=== PATIENT | female | born 1970 | race African-American/Black ===

== ENCOUNTER 2022-04-05 22:33 | Emergency (ER) | payer BC | END 2022-04-06 02:55 | disposition home or self-care (01) | LOC: CSHERS 22:33 | DX: S43.402A Unspecified sprain of left shoulder joint, initial encounter (principal); E78.5 Hyperlipidemia, unspecified; I10 Essential (primary) hypertension; E11.9 Type 2 diabetes mellitus without complications; E03.9 Hypothyroidism, unspecified; Z79.4 Long term (current) use of insulin; W18.30XA Fall on same level, unspecified, initial encounter | CPT/HCPCS: J7620 ==

== ENCOUNTER 2023-04-17 21:01 | Emergency (ER) | payer BC ==
[2023-04-17] MEDS ORDERED: cefTRIAXone (ROCEPHIN) 1 GM VIAL ONE (23:18)
[2023-04-17 23:52] LABS: ALT (SGPT) 19 U/L (8-55); AST (SGOT) 18 U/L (5-34); Albumin 3.9 g/dL (3.5-5.0); Alkaline Phosphatase 82 U/L (40-110); Anion Gap 13 mmol/L (10-20); BUN (Urea Nitrogen) 22 mg/dL (9.8-20.1); Bilirubin, Total 0.6 mg/dL (0.2-1.2); Calc. Creatinine Clearance 0 mL/min (70-130); Calcium 9.3 mg/dL (7.8-10.44); Carbon Dioxide 25 mmol/L (22-29); Chloride 98 mmol/L (98-107); Estimated GFR 56; Glucose 332 mg/dL (70-105); Potassium 3.2 mmol/L (3.5-5.1); Protein, Total 7.9 g/dL (6.0-8.3); Sodium 133 mmol/L (136-145)
[2023-04-17 23:55] LABS: #Eosinphils 0.1 10x3/uL (0.0-0.5); #Monocytes 0.8 10x3/uL (0.0-1.1); #Neutrophils 11.1 10x3/uL (1.5-8.4); %Basophils 0.2 % (0.0-2.0); %Eosinophils 0.7 % (0.0-6.0); %Lymphocytes 13.1 % (18.0-47.0); %Monocytes 5.7 % (0.0-10.0); %Neutrophils 79.8 % (40.0-75.0); Hematocrit 35.2 % (34.9-44.5); Hemoglobin 11.9 g/dL (12.0-15.5); Mean Corpuscular HGB CONC 33.8 g/dL (32.0-36.0); Mean Corpuscular Hemoglobin 28.5 pg (27.0-33.0); Mean Corpuscular Volume 84.4 fl (81.6-98.3); Mean Platelet Volume 11.7 fl (7.4-10.4); Platelet Count 295 10x3/uL (150-450); RBC Distribution Width 13.3 % (11.5-14.5); Red Blood Cell (RBC) Count 4.17 10x6/uL (3.90-5.03); White Blood Cell (WBC) Count 13.9 10x3/uL (3.5-10.5)
[2023-04-18] MEDS ORDERED: Ketorolac Tromethamine 30 MG/ML VIAL ONE (01:23)
[2023-04-18] MEDS ORDERED: Potassium Chloride 20 MEQ TAB ONE (01:23)
== END 2023-04-18 02:30 | disposition home or self-care (01) ==
LOC: CSHERS 21:01
DX: L03.113 Cellulitis of right upper limb (principal); E78.5 Hyperlipidemia, unspecified; I10 Essential (primary) hypertension; E03.9 Hypothyroidism, unspecified; E11.9 Type 2 diabetes mellitus without complications; Z79.4 Long term (current) use of insulin; Z79.84 Long term (current) use of oral hypoglycemic drugs
CPT/HCPCS: 36415; 80053; 85025; 87040; 96361; 96374; 96375; J0696; J1885

== ENCOUNTER 2023-08-15 18:17 | Inpatient (IN) | payer BC ==
[2023-08-15] MEDS ORDERED: Ibuprofen 200 MG TAB ONE (18:30)
[2023-08-15 18:44] LABS: Bilirubin Neg (Negative); Blood, Urine 150 (Negative); Clarity Slightly Cloudy (Clear); Glucose, Urine (Dipstick) 100 mg/dL (Negative); Ketone, Urine 50 mg/dL (Negative); Leukocyte 500 (Negative); Nitrite Negative (Negative); Protein, Urine (Dipstick) 100 mg/dl (Neg-Trace); Specific Gravity, Urine 1.005 (1.005-1.030); Urobilinogen Normal mg/dL (Less than 2)
[2023-08-15 19:05] LABS: CAUTI Indications for Culture Dysuria,urgency,freq; Squamous Epithelial 0-3 HPF (0-3); WBC/HPF 21-50 HPF (0-3)
[2023-08-15 19:06] LABS: Bacteria/HPF 2+ HPF (None Seen)
[2023-08-15 19:07] LABS: Urine Culture Reflex Yes Yes
[2023-08-15 19:19] LABS: SARS-CoV-2 NAA Rapid Test Not Detected (NotDetected)
[2023-08-15 20:27] LABS: #Eosinphils 0.1 10x3/uL (0.0-0.5); #Monocytes 0.8 10x3/uL (0.0-1.1); #Neutrophils 10.5 10x3/uL (1.5-8.4); %Basophils 0.3 % (0.0-2.0); %Eosinophils 0.7 % (0.0-6.0); %Lymphocytes 7.4 % (18.0-47.0); %Monocytes 6.3 % (0.0-10.0); %Neutrophils 84.6 % (40.0-75.0); Hematocrit 32.7 % (34.9-44.5); Hemoglobin 11.6 g/dL (12.0-15.5); Mean Corpuscular HGB CONC 35.5 g/dL (32.0-36.0); Mean Corpuscular Hemoglobin 29.7 pg (27.0-33.0); Mean Corpuscular Volume 83.6 fl (81.6-98.3); Platelet Count 230 10x3/uL (150-450); RBC Distribution Width 13.3 % (11.5-14.5); Red Blood Cell (RBC) Count 3.91 10x6/uL (3.90-5.03); White Blood Cell (WBC) Count 12.5 10x3/uL (3.5-10.5)
[2023-08-15 20:49] LABS: ALT (SGPT) 11 U/L (8-55); AST (SGOT) 16 U/L (5-34); Albumin 3.8 g/dL (3.5-5.0); Alkaline Phosphatase 62 U/L (40-110); Anion Gap 18 mmol/L (10-20); BUN (Urea Nitrogen) 17 mg/dL (9.8-20.1); Bilirubin, Total 0.9 mg/dL (0.2-1.2); Calc. Creatinine Clearance 0 mL/min (70-130); Calcium 9.1 mg/dL (7.8-10.44); Carbon Dioxide 19 mmol/L (22-29); Chloride 98 mmol/L (98-107); Estimated GFR 58; Globulin 3.5 g/dL (2.4-3.5); Glucose 290 mg/dL (70-105); Lipase 25 U/L (8-78); Potassium 3.2 mmol/L (3.5-5.1); Protein, Total 7.3 g/dL (6.0-8.3); Sodium 132 mmol/L (136-145)
[2023-08-15] MEDS ORDERED: Dextrose 5% in Water 1,000 ML IV PRN (21:02)
[2023-08-15] MEDS ORDERED: Senokot S 8.6-50 MG TAB PO PRN (21:02)
[2023-08-15] MEDS ORDERED: Dextrose 50% Abboject 50 ML SYRINGE SLOW IVP PRN (21:02)
[2023-08-15] MEDS ORDERED: Glucagon 1 MG/ML KIT IM PRN (21:02)
[2023-08-15] MEDS ORDERED: Calcium Carbonate 500 MG ChewTAB PO PRN (21:02)
[2023-08-15] MEDS ORDERED: Ondansetron PF 4 MG/2 ML Vial IVP PRN (21:02)
[2023-08-15] MEDS ORDERED: Guaifenesin DM 100-10/5 ML UDCUP PO PRN (21:02)
[2023-08-15] MEDS ORDERED: Zolpidem Tartrate 5 MG TAB PO PRN (21:02)
[2023-08-15] MEDS ORDERED: cefTRIAXone (ROCEPHIN) 1 GM VIAL ONE (21:06)
[2023-08-15] MEDS ORDERED: traMADol HCl 50 MG TAB PO PRN (21:10)
[2023-08-16] MEDS ORDERED: Potassium Chloride 20 MEQ TAB PO SCH (01:00)
[2023-08-16] MEDS ORDERED: Lactated Ringer's 1,000 ML IV SCH (01:00)
[2023-08-16 02:43] VITALS: BMI 39.3
[2023-08-16 03:58] LABS: #Eosinphils 0.3 10x3/uL (0.0-0.5); #Monocytes 0.3 10x3/uL (0.0-1.1); #Neutrophils 7.2 10x3/uL (1.5-8.4); %Basophils 0.4 % (0.0-2.0); %Eosinophils 3.2 % (0.0-6.0); %Lymphocytes 4.2 % (18.0-47.0); %Monocytes 3.4 % (0.0-10.0); %Neutrophils 88.4 % (40.0-75.0); Hematocrit 31.9 % (34.9-44.5); Hemoglobin 10.9 g/dL (12.0-15.5); Mean Corpuscular HGB CONC 34.2 g/dL (32.0-36.0); Mean Corpuscular Volume 84.8 fl (81.6-98.3); Mean Platelet Volume 11.8 fl (7.4-10.4); Platelet Count 196 10x3/uL (150-450); RBC Distribution Width 13.3 % (11.5-14.5); Red Blood Cell (RBC) Count 3.76 10x6/uL (3.90-5.03); White Blood Cell (WBC) Count 8.2 10x3/uL (3.5-10.5)
[2023-08-16] MEDS: Acetaminophen 325 MG TAB PO PRN ×3 (03:59→18:02)
[2023-08-16 04:22] LABS: Anion Gap 17 mmol/L (10-20); BUN (Urea Nitrogen) 15 mg/dL (9.8-20.1); Calc. Creatinine Clearance 115 mL/min (70-130); Calcium 8.5 mg/dL (7.8-10.44); Carbon Dioxide 21 mmol/L (22-29); Chloride 102 mmol/L (98-107); Estimated GFR 65; Glucose 273 mg/dL (70-105); Potassium 3.8 mmol/L (3.5-5.1); Sodium 136 mmol/L (136-145)
[2023-08-16] MEDS ORDERED: Levothyroxine Sodium 125 MCG TAB PO SCH (06:00)
[2023-08-16] MEDS: HumaLOG 300 UNITS/3 ML VIAL SC PRN ×4 (06:28→22:33)
[2023-08-16] MEDS ORDERED: Electrolyte Replacement Protocol 1 EACH FS SCH (08:15)
[2023-08-16] MEDS: metFORMIN 500 MG TAB PO SCH ×2 (08:28→18:02)
[2023-08-16] MEDS: Rosuvastatin 10 MG TAB PO SCH (08:28)
[2023-08-16] MEDS: Amlodipine 5 MG TAB PO SCH (08:43)
[2023-08-16] MEDS ORDERED: Lantus 1000 UNITS/10 ML VIAL SC SCH (09:00)
[2023-08-16 11:17] LABS: Free T4 (Free Thyroxine) 1.65 ng/dL (0.70-1.48)
[2023-08-16 12:43] LABS: Hemoglobin A1c 8.2 % (4.0-6.0)
[2023-08-16] MEDS ORDERED: cefTRIAXone\\ROCEPHIN 2 GM in Sodium Chloride 0.9% 100 ML IVPB SCH (21:00)
[2023-08-16] MEDS ORDERED: Enoxaparin 40 MG (0.4 mL) SYRINGE SC SCH (21:00)
[2023-08-16] MEDS: Gabapentin 300 MG CAP PO SCH (21:15)
[2023-08-16] MEDS: Lantus 1000 UNITS/10 ML VIAL SC SCH (22:33)
[2023-08-17] MEDS: Acetaminophen 325 MG TAB PO PRN (00:05)
[2023-08-17 03:29] LABS: #Monocytes 0.5 10x3/uL (0.0-1.1); #Neutrophils 5.8 10x3/uL (1.5-8.4); %Basophils 0.3 % (0.0-2.0); %Eosinophils 0.1 % (0.0-6.0); %Lymphocytes 12.6 % (18.0-47.0); %Monocytes 6.4 % (0.0-10.0); %Neutrophils 80.2 % (40.0-75.0); Hematocrit 29.1 % (34.9-44.5); Hemoglobin 10.1 g/dL (12.0-15.5); Mean Corpuscular HGB CONC 34.7 g/dL (32.0-36.0); Mean Corpuscular Volume 83.6 fl (81.6-98.3); Platelet Count 176 10x3/uL (150-450); RBC Distribution Width 13.3 % (11.5-14.5); Red Blood Cell (RBC) Count 3.48 10x6/uL (3.90-5.03); White Blood Cell (WBC) Count 7.2 10x3/uL (3.5-10.5)
[2023-08-17 03:48] LABS: ALT (SGPT) 28 U/L (8-55); AST (SGOT) 41 U/L (5-34); Albumin 3.1 g/dL (3.5-5.0); Alkaline Phosphatase 56 U/L (40-110); Anion Gap 12 mmol/L (10-20); BUN (Urea Nitrogen) 15 mg/dL (9.8-20.1); Bilirubin, Total 0.4 mg/dL (0.2-1.2); Calc. Creatinine Clearance 122 mL/min (70-130); Calcium 8.3 mg/dL (7.8-10.44); Carbon Dioxide 23 mmol/L (22-29); Chloride 102 mmol/L (98-107); Estimated GFR 70; Globulin 3.2 g/dL (2.4-3.5); Glucose 141 mg/dL (70-105); Potassium 3.6 mmol/L (3.5-5.1); Protein, Total 6.3 g/dL (6.0-8.3); Sodium 133 mmol/L (136-145)
[2023-08-17] MEDS ORDERED: Levothyroxine Sodium 100 MCG TAB PO SCH (06:00)
[2023-08-17 08:55] VITALS: BP 134/72
[2023-08-17] MEDS ORDERED: FLUoxetine HCl 10 MG CAP PO SCH (09:00)
[2023-08-17] MEDS: Gabapentin 300 MG CAP PO SCH (09:31)
[2023-08-17] MEDS: metFORMIN 500 MG TAB PO SCH (09:32)
[2023-08-17] MEDS: Rosuvastatin 10 MG TAB PO SCH (09:32)
[2023-08-17] MEDS: Amlodipine 5 MG TAB PO SCH (09:32)
[2023-08-17] MEDS: Lantus 1000 UNITS/10 ML VIAL SC SCH (09:32)
[2023-08-17 14:07] VITALS: TEMP 98
== END 2023-08-17 17:35 | disposition home or self-care (01) | DRG 872 ==
LOC: CSHERS 18:17 → CSHTELE 21:02 → UNDOADMIN 08-16 00:38 → CSHTELE 08-16 00:38
PROVIDERS: ADMIT Student in an Organized Health Care Education/Training Program; ATTEND Family Medicine
DX: A41.50 Gram-negative sepsis, unspecified (principal); N10 Acute pyelonephritis; I10 Essential (primary) hypertension; E78.5 Hyperlipidemia, unspecified; E03.9 Hypothyroidism, unspecified; E87.6 Hypokalemia; N28.9 Disorder of kidney and ureter, unspecified; E11.9 Type 2 diabetes mellitus without complications; Z90.710 Acquired absence of both cervix and uterus; Z88.8 Allergy status to other drugs, medicaments and biological substances; Z79.899 Other long term (current) drug therapy; Z79.84 Long term (current) use of oral hypoglycemic drugs; Z79.4 Long term (current) use of insulin; Z11.52 Encounter for screening for COVID-19
CPT/HCPCS: 36415; 36416; 74176; 76770; 80048; 80053; 81001; 83036; 83605; 83690; 84145; 84439; 84443; 84481; 85025; 87040; 87077; 87086; 87149; 87186; 93005; 96374; J0696; J1650; J1815; J3490; J7120